=== PATIENT | male | born 1950 | race Caucasian/White ===

== ENCOUNTER 2023-02-10 12:30 | Inpatient (IN) | payer MEDICARE, OTHER ==
[~2023-02-10] VITALS: Ht 160 cm; Wt 83.9 kg
[2023-02-10 12:58] LABS: BASOPHILS % (AUTO) 0.7 % (0.0-2.0); EOSINOPHILS # (AUTO) 0.1 K/uL (0.0-0.7); HEMATOCRIT 46 % (39-51); HEMOGLOBIN 15.3 g/dL (13.5-17.5); LYMPHOCYTES # (AUTO) 1.7 K/uL (0.8-4.8); LYMPHOCYTES % (AUTO) 25.4 % (20.0-44.0); MEAN CORPUSCULAR HEMOGLOBIN 32 PG (26.0-33.0); MEAN CORPUSCULAR HGB CONC 33 g/dl (31.0-36.0); MEAN CORPUSCULAR VOLUME 95 fL (80-96); MONOCYTES # (AUTO) 0.6 K/uL (0.1-1.30); MONOCYTES % (AUTO) 8.7 % (2.0-12.0); NEUTROPHILS # (AUTO) 4.3 K/uL (1.8-8.9); NEUTROPHILS % (AUTO) 63.2 % (43.0-81.0); PLATELET COUNT (AUTO) 211 K/uL (150-450); RED BLOOD CELL COUNT(AUTO) 4.85 MIL/uL (4.5-6.0); RED CELL DISTRIBUTION WIDTH 14.5 % (11.5-15.0); WHITE BLOOD COUNT (AUTO) 6.7 K/uL (4.3-11.0)
[2023-02-10 13:05] LABS: CALCIUM, SERUM 9.2 mg/dL (8.5-10.1); CARBON DIOXIDE 25 mmol/L (21-32); CHLORIDE 105 mmol/L (98-107); CREATININE 1.4 mg/dL (0.6-1.3); GLUCOSE 90 mg/dL (74-106); POTASSIUM 3.8 mmol/L (3.5-5.1); SODIUM SERUM 139 mmol/L (136-145); UREA NITROGEN, BLOOD 24 mg/dL (7-18)
[2023-02-10] MEDS ORDERED: ERGO500093 PO (13:15)
[2023-02-10] MEDS ORDERED: COLC0.6C3 PO (13:15)
[2023-02-10] MEDS ORDERED: TAMS-12 PO (13:15)
[2023-02-10] MEDS ORDERED: ALLO300T2 PO (13:15)
[2023-02-10] MEDS ORDERED: AMLO-212 PO (13:15)
[2023-02-10] MEDS ORDERED: PRED20TA PO (13:15)
[2023-02-10] MEDS ORDERED: TRAM50TA2 PO (13:15)
[2023-02-10] MEDS ORDERED: OMEP20CA15 PO (13:15)
[2023-02-10] MEDS ORDERED: ATEN50TA PO (13:15)
[2023-02-10] MEDS ORDERED: LOSA50TA39 PO (13:15)
[2023-02-10] MEDS ORDERED: SIMV-46 PO (13:15)
[2023-02-10 13:18] LABS: NT-PRO BNP 21 pg/mL (0-125)
[2023-02-10] MEDS ORDERED: LIDOCAINE HCL/MPF 1% 30 ML VIAL IJ ONE (13:21)
[2023-02-10] MEDS ORDERED: IV SET PRIMARY PUMP SET 1 EA INFUS.SET MC ONE (13:21)
[2023-02-10] MEDS ORDERED: IV NS 0.9% 1,000 ML ONE (13:21)
[2023-02-10] MEDS ORDERED: IODIXANOL 150 ML IV ONE (13:21)
[2023-02-10 14:15] LABS: INR 0.98 (0.91-1.10); PARTIAL THROMBOPLASTIN TIME 26.3 SEC (24.3-34.3); PROTHROMBIN TIME 10.4 SECS (9.2-11.1)
[2023-02-10] MEDS ORDERED: TRAMADOL HCL 50 MG TABLET PO PRN (14:30)
[2023-02-10] MEDS ORDERED: NITROGLYCERIN IN 5 % DEXTROSE 250 ML IV ONE (15:00)
[2023-02-10] MEDS ORDERED: FENTANYL PF 100MCG/2ML AMPUL ONE (15:30)
[2023-02-10] MEDS ORDERED: MIDAZOLAM HCL 2 MG/2ML VIAL ONE (15:30)
[2023-02-10] MEDS ORDERED: IODIXANOL 320MG/ML 50 ML IV ONE (15:37)
[2023-02-10] MEDS ORDERED: HEPARIN SODIUM, PORCINE 5000 UNITS/1 ML VIAL ONE (15:39)
[2023-02-10] MEDS ORDERED: HEPARIN SODIUM, PORCINE 1,000 UNIT/ML VIAL ONE (15:39)
[2023-02-10] MEDS ORDERED: TICAGRELOR 90 MG TABLET PO ONE (15:51)
[2023-02-10] MEDS ORDERED: ENOXAPARIN SODIUM 40 MG/0.4 ML DISP.SYRIN SQ SCH (17:00)
[2023-02-10] MEDS ORDERED: IV NS 0.9% 1,000 ML IV PRN (17:00)
[2023-02-10] MEDS ORDERED: ONDANSETRON HCL/PF 4 MG/2 ML VIAL IVP PRN (17:00)
[2023-02-10] MEDS ORDERED: Z GUARD REMEDY 4 OZ OINT TP PRN (17:00)
[2023-02-10] MEDS ORDERED: ACETAMINOPHEN 325 MG TABLET PO PRN (17:00)
[2023-02-10] MEDS ORDERED: ATROPINE SULFATE 1 MG/10 ML DISP.SYRIN IV PRN (17:00)
[2023-02-10 18:00] VITALS: BP 149/79; TEMP 98; O2SAT 100
[2023-02-10] MEDS ORDERED: SIMVASTATIN 20 MG TABLET PO SCH (18:00)
[2023-02-10 18:03] LABS: THYROID STIMULATING HORMONE 2.614 uIU/mL (0.358-3.74)
[2023-02-10 20:00] VITALS: BP 126/67; TEMP 98; O2SAT 96
[2023-02-11] VITALS: BP 134/81; TEMP 98; O2SAT 96
[2023-02-11 02:00] VITALS: TEMP 97.5; O2SAT 99
[2023-02-11 06:00] VITALS: TEMP 97.5; O2SAT 99
[2023-02-11 06:16] LABS: BASOPHILS % (AUTO) 0.4 % (0.0-2.0); EOSINOPHILS # (AUTO) 0.2 K/uL (0.0-0.7); EOSINOPHILS % (AUTO) 2.8 % (0.0-6.0); HEMATOCRIT 45 % (39-51); HEMOGLOBIN 14.9 g/dL (13.5-17.5); LYMPHOCYTES # (AUTO) 1.6 K/uL (0.8-4.8); LYMPHOCYTES % (AUTO) 21.9 % (20.0-44.0); MEAN CORPUSCULAR HEMOGLOBIN 32 PG (26.0-33.0); MEAN CORPUSCULAR HGB CONC 33 g/dl (31.0-36.0); MEAN CORPUSCULAR VOLUME 95 fL (80-96); MONOCYTES # (AUTO) 0.5 K/uL (0.1-1.30); MONOCYTES % (AUTO) 7.2 % (2.0-12.0); NEUTROPHILS # (AUTO) 4.8 K/uL (1.8-8.9); NEUTROPHILS % (AUTO) 67.7 % (43.0-81.0); PLATELET COUNT (AUTO) 218 K/uL (150-450); RED BLOOD CELL COUNT(AUTO) 4.71 MIL/uL (4.5-6.0); RED CELL DISTRIBUTION WIDTH 14.5 % (11.5-15.0); WHITE BLOOD COUNT (AUTO) 7.1 K/uL (4.3-11.0)
[2023-02-11 06:20] LABS: CALCIUM, SERUM 9.1 mg/dL (8.5-10.1); CARBON DIOXIDE 26 mmol/L (21-32); CHLORIDE 104 mmol/L (98-107); CREATININE 1.5 mg/dL (0.6-1.3); GLUCOSE 100 mg/dL (74-106); MAGNESIUM 2.2 mg/dL (1.8-2.4); PHOSPHORUS 4.3 mg/dL (2.5-4.9); POTASSIUM 3.8 mmol/L (3.5-5.1); SODIUM SERUM 141 mmol/L (136-145); UREA NITROGEN, BLOOD 21 mg/dL (7-18)
[2023-02-11] MEDS ORDERED: PANTOPRAZOLE 40 MG TABLET.DR PO SCH (07:30)
[2023-02-11] MEDS ORDERED: LOSARTAN POTASSIUM 50 MG TABLET PO SCH (09:00)
[2023-02-11] MEDS ORDERED: TICAGRELOR 90 MG TABLET PO SCH (09:00)
[2023-02-11] MEDS ORDERED: ATENOLOL 50 MG TABLET PO SCH (09:00)
[2023-02-11] MEDS ORDERED: ALLOPURINOL 100 MG TABLET PO SCH (09:00)
[2023-02-11] MEDS ORDERED: AMLODIPINE BESYLATE 5 MG TABLET PO SCH (09:00)
[2023-02-11] MEDS ORDERED: ASPIRIN EC 81 MG TABLET.DR PO SCH (09:00)
[2023-02-11] MEDS ORDERED: TAMSULOSIN 0.4 MG CAP.SR.24H PO SCH (09:00)
[2023-02-11 10:00] VITALS: BP 142/84; TEMP 97.9; O2SAT 99
[2023-02-11 12:00] VITALS: BP 130/76; TEMP 97.8; O2SAT 99
[2023-02-11 14:00] VITALS: BP 129/80; TEMP 97.8; O2SAT 99
[2023-02-11] MEDS ORDERED: ASPI-1420 PO (20:05)
[2023-02-11] MEDS ORDERED: TICA90TA PO (20:05)
== END 2023-02-11 16:35 | disposition home or self-care (01) | DRG 322 ==
LOC: ER 12:36 → TELE 15:37 → TELE-TD 16:04
PROVIDERS: ADMIT Nurse Practitioner Acute Care; ATTEND Nurse Practitioner Acute Care
PROC: 027034Z Dilation of Coronary Artery, One Artery with Drug-eluting Intraluminal Device, Percutaneous Approach (ICD-10-PCS; principal; 2023-02-10)
PROC: 4A023N7 Measurement of Cardiac Sampling and Pressure, Left Heart, Percutaneous Approach (ICD-10-PCS; 2023-02-10)
PROC: B211YZZ Fluoroscopy of Multiple Coronary Arteries using Other Contrast (ICD-10-PCS; 2023-02-10)
DX: I25.110 Atherosclerotic heart disease of native coronary artery with unstable angina pectoris (principal); E78.5 Hyperlipidemia, unspecified; N40.0 Benign prostatic hyperplasia without lower urinary tract symptoms; I10 Essential (primary) hypertension; R73.03 Prediabetes
CPT/HCPCS: 36415; 71045-TC; 80048-TC; 80061-TC; 83735-TC; 83880; 84100-TC; 84443-TC; 84484-TC; 85025-TC; 85730-TC; A4223; G0378; J1644; J1650; J2250; J3010; J3490; J7030; Q9967